=== PATIENT | male | born 1950 | race Caucasian/White ===

== ENCOUNTER 2023-10-24 18:41 | Emergency (ER) | payer OTHER ==
[2023-10-24 19:43] LABS: #Basophils 0.1 thou/uL (0.0-0.2); #Eosinphils 0.3 thou/uL (0.0-0.7); #Lymphocytes 1.7 thou/uL (1.20-3.40); #Monocytes 0.5 thou/uL (0.11-0.59); #Neutrophils 5.6 thou/uL (1.40-6.50); %Basophils 0.8 % (0.0-1.0); %Eosinophils 3.2 % (0.0-10.0); %Monocytes 5.6 % (0.0-10.0); %Neutrophils 69.4 % (42.0-75.0); ALT (SGPT) 18 U/L (8-55); AST (SGOT) 16 U/L (5-34); Alkaline Phosphatase 42 U/L (40-110); Anion Gap 14 mmol/L (10-20); BUN (Urea Nitrogen) 27 mg/dL (8.4-25.7); Bilirubin, Total 0.5 mg/dL (0.2-1.2); Calc. Creatinine Clearance 0 mL/min (70-130); Calcium 9.1 mg/dL (7.8-10.44); Carbon Dioxide 20 mmol/L (23-31); Chloride 108 mmol/L (98-107); Estimated GFR 40; Globulin 2.9 g/dL (2.4-3.5); Glucose 119 mg/dL (83-110); Hemoglobin 13.5 g/dL (14.0-18.0); Lipase 65 U/L (8-78); Mean Corpuscular Hemoglobin 30.3 pg (27.0-31.0); Mean Corpuscular Volume 94.5 fl (78.0-98.0); Mean Platelet Volume 7.4 fL (7.4-10.4); Platelet Count 206 10x3/uL (130-400); Potassium 4.4 mmol/L (3.5-5.1); Protein, Total 6.9 g/dL (5.8-8.1); RBC Distribution Width 11.9 % (11.5-14.5); Red Blood Cell (RBC) Count 4.45 mill/uL (4.70-6.10); Sodium 138 mmol/L (136-145); Troponin I 0.028 ng/mL (< 0.028)
[2023-10-24 20:15] LABS: Bilirubin Small (Negative); Blood, Urine Negative (Negative); Clarity Cloudy (Clear); Glucose, Urine (Dipstick) Negative (Negative); Ketone, Urine Trace mg/dL (Negative); Leukocyte Small (Negative); Nitrite Negative (Negative); Protein, Urine (Dipstick) 30 mg/dL (Neg-Trace); Urobilinogen 0.2 mg/dL (Less than 2); pH, Urine 5.5 (5.0-9.0)
[2023-10-24 20:20] LABS: Bacteria/HPF 2+ HPF (None Seen); CAUTI Indications for Culture Alt mental st,lethar; Mucous/LPF 3+ LPF (<2+); RBC/HPF 0-3 HPF (0-3)
[2023-10-24 20:21] LABS: Urine Culture Reflex No No
[2023-10-24] MEDS ORDERED: Sulfameth/Trimethoprim DS 800-160mg TAB ONE (20:29)
== END 2023-10-24 20:45 | disposition home or self-care (01) ==
LOC: BURERS 18:41
DX: E86.0 Dehydration (principal); N39.0 Urinary tract infection, site not specified; I10 Essential (primary) hypertension
CPT/HCPCS: 71045; 80053; 81001; 83605; 83690; 84484; 85025; 93005; 96360

== ENCOUNTER 2024-06-07 17:12 | Emergency (ER) | payer OTHER | END 2024-06-07 17:44 | disposition home or self-care (01) | LOC: BURERS 17:12 | DX: G20.A1 Parkinson's disease without dyskinesia, without mention of fluctuations (principal); R29.6 Repeated falls; I10 Essential (primary) hypertension | CPT/HCPCS: 99284 ==